=== PATIENT | female | born 1970 | race Caucasian/White ===

== ENCOUNTER 2018-03-03 16:09 | Emergency (ER) | payer OTHER, BC ==
[~2018-03-03] VITALS: Ht 157.5 cm; Wt 75.0 kg
[~2018-03-03 16:09] MED LIST: FIORICET PO; GLUCOPHAGE500 MG PO
[2018-03-03 17:46] LABS: HEMOGLOBIN 13.5 g/dl (12.0-16.0); IMMATURE GRANULOCYTES 0.3 % (0.0-1.0); MEAN CELL VOLUME 90.1 fL CALC (80.0-100.0); MEAN CORPUSCULAR HGB 29.7 pG CALC (26.0-32.0); MEAN CORPUSCULAR HGB CONC 32.9 g/L CALC (32.0-36.0); NEUT# 6.87 thou/uL (2.00-7.15); RED BLOOD COUNT 4.55 mill/uL (4.20-5.60); RED CELL DISTRI WIDTH 13.1 % (11.5-15.5)
[2018-03-03 18:07] LABS: ANION GAP 17 (6-22 (CALC)); BUN 15 mg/dL (7-17); BUN/CREATININE RATIO 28 (12-20 (CALC)); CARBON DIOXIDE 23 mmol/l (22-30); CHLORIDE 105 mmol/l (95-108); CREATININE 0.5 mg/dL (0.5-1.0); GFR > 60 ML/MIN (>=60 (CALC)); GFR FOR AFR.AMER. > 60 ML/MIN (>=60 (CALC)); POTASSIUM 3.8 mmol/l (3.5-5.1); SODIUM 141 mmol/l (137-146)
[2018-03-03] MEDS ORDERED: ZOFRAN4 M1 PO (19:07)
[2018-03-03] MEDS ORDERED: MOTRIN400 MG PO (19:07)
[2018-03-03] MEDS ORDERED: HYDROCO/APAP1 TA9 PO (19:07)
[2018-03-03 21:52] VITALS: BP 156/76
== END 2018-03-03 21:53 | disposition home or self-care (01) | DRG 563 ==
LOC: ED 16:09
PROVIDERS: Family Medicine
PROC: 0PSJXZZ Reposition Left Radius, External Approach (ICD-10-PCS; principal; 2018-03-03)
DX: S52.502A Unspecified fracture of the lower end of left radius, initial encounter for closed fracture (principal); S80.01XA Contusion of right knee, initial encounter; V59.40XA Driver of pick-up truck or van injured in collision with unspecified motor vehicles in traffic accident, initial encounter

== ENCOUNTER → 2018-08-10 | Outpatient (REF) | payer BC ==
[~2018-08-10] MED LIST changes: +HYDROCO/APAP1 TA9 PO; +MOTRIN400 MG PO; +ZOFRAN4 M1 PO
== END | disposition home or self-care (01) | DRG 761 ==
LOC: BD 07:29
PROVIDERS: ATTEND Nurse Practitioner Adult Health
DX: N95.1 Menopausal and female climacteric states (principal)